=== PATIENT | male | born 1960 | race Caucasian/White ===

== ENCOUNTER 2024-08-11 21:15 | Emergency (ER) | payer OTHER ==
[2024-08-11] MEDS ORDERED: METHYLPREDNISOLONE 125 MG INJ ONE (22:00)
[2024-08-11] MEDS ORDERED: NA CHLORIDE 0.9% 1,000 ML ONE (22:01)
[2024-08-11] MEDS ORDERED: FAMOTIDINE 20 MG/2 ML VIAL IV ONE (22:01)
[2024-08-11] MEDS ORDERED: TETRACAINE HCL 0.5% 4ML OPTH ONE (22:01)
[2024-08-11] MEDS ORDERED: DIPHENHYDRAMINE 50 MG/ML VIAL ONE (22:01)
[2024-08-11 22:18] LABS: Absolute Eosinophils 0.2 K/uL (0-0.5); Absolute Lymphocytes (CBC) 3.3 K/uL (0.7-4.9); Absolute Monocytes 0.7 K/uL (0.1-1.3); Absolute Neutrophil 4.4 K/uL (1.8-8.0); Basophils % 0.4 % (0-1.3); Eosinophils % 1.8 % (0-4.4); Hematocrit 44.6 % (39.6-49.0); Lymphocytes % 37.9 % (15.3-44.8); MCH 29.6 pg (27.0-35.0); MCHC 33.6 g/dL (32.0-36.0); MCV 88.3 fL (80-100); MPV 7.8 fL (7.6-11.3); Monocytes % 8.5 % (3.3-12.3); Neutrophils % 51.4 % (41.7-73.7); Nucleated Red Blood Cells % 0.2 % (0-0); Platelets 323 thou/uL (152-406); RBC Red Blood Cell Count 5.05 M/uL (4.33-5.43); Red Cell Distribution Width 13.6 % (12.1-15.2)
[2024-08-11 22:24] LABS: Anion Gap 8.8 mEq/L (5.0-15.0); Potassium 3.8 mEq/L (3.5-5.1)
[2024-08-11] MEDS ORDERED: FLUORESCEIN SODIUM 1 MG/WRAP ONE ×2 (22:28→22:31)
[2024-08-11] MEDS ORDERED: FENTANYL CITR 100 MCG/2 ML ONE (22:31)
[2024-08-11] MEDS ORDERED: NA CHLORIDE 0.9% 2,000 ML ONE (22:32)
--- NOTE | 2024-08-12 00:45 | EDPHYS ---
Physician Documentation [facility] Name: Tyrone Dietz Age: 64 yrs Sex: Male : 1960 Arrival Date: 08/11/2024 Time: 21:15 Bed 11 Private MD: ED Physician Jamal Black HPI: 08/11 21:45 This 64 yrs old Male presents to ER via Ambulatory with complaints of BL eyes pain cp exposure. 21:45 The patient is experiencing burning, pain, redness, to both eyes, caused by exposure to cp plant sap from plant near home that patient touched and then wiped across eyes. Onset: The symptoms/episode began/occurred today. 21:45 Duration: the symptoms are continuous. Associated signs and symptoms: Pertinent cp positives: nasal congestion, facial swelling, rash. Patient does not utilize any form of vision correction. Severity of symptoms: in the emergency department the symptoms are worse moderately. Historical: - Allergies: 21:49 No Known Allergies; ha1 - PMHx: 21:49 None; ha1 - Immunization history:: Adult Immunizations up to date. - Infectious Disease History:: Denies. - Social history:: Smoking status: Patient denies any tobacco usage or history of. ROS: 21:50 Constitutional: Negative for body aches, chills, fever, poor PO intake, cp 21:50 Eyes: Positive for itching, pain, redness, of the left eye and right eye, burning, cp 21:50 ENT: Positive for nasal congestion, Negative for drainage from ear(s), ear pain, sore throat, difficulty swallowing, difficulty handling secretions, 21:50 Cardiovascular: Negative for chest pain, edema, palpitations, 21:50 Respiratory: Negative for cough, shortness of breath, wheezing, 21:50 Abdomen/GI: Negative for abdominal pain, vomiting, diarrhea, constipation, 21:50 Skin: Positive for erythema, swelling, of the face, 21:50 Neuro: Negative for altered mental status, dizziness, headache, 21:50 All other systems are negative, Exam: 21:55 Constitutional: The patient appears in no acute distress, alert, awake, non-toxic, well cp developed, well nourished, uncomfortable, 21:55 Head/face: Noted is tenderness, mild erythema, mild swelling right periorbital area. cp 21:55 Eyes: Pupils: equal, round, and reactive to light and accomodation, Extraocular movements: intact throughout, Conjunctiva: injected, bilaterally, Lids and lashes: erythema, on the right, 21:55 ENT: External ear(s): are unremarkable, Nose: is normal, Mouth: Lips: moist, Oral mucosa: moist, Posterior pharynx: Airway: no evidence of obstruction, patent, 21:55 Chest/axilla: Inspection: normal, 21:55 Cardiovascular: Rate: normal, 21:55 Respiratory: the patient does not display signs of respiratory distress, Respirations: normal, no use of accessory muscles, no retractions, labored breathing, is not present, Breath sounds: are clear throughout, no decreased breath sounds, no stridor, no wheezing, 21:55 Abdomen/GI: Inspection: abdomen appears normal, Palpation: abdomen is soft and non-tender, in all quadrants, Vital Signs: 21:34 BP 143 / 78; Pulse 98; Resp 18 S; Temp 97.5(T); Pulse Ox 100% on R/A; Weight 88.45 kg; ha1 Height 5 ft. 11 in. ; 23:39 BP 147 / 92; Pulse 72; Resp 18; Pulse Ox 100% on R/A; br2 08/12 01:15 BP 117 / 85; Pulse 77; Resp 18 S; Pulse Ox 99% on R/A; ha1 01 21:34 Body Mass Index 27.20 (88.45 kg, 180.34 cm) ha MDM: 08/11 21:38 Medical Screening Exam initiated cp 22:00 Differential diagnosis: Corneal abrasion of Corneal ulcer of Foreign body in both eyes. cp Acute iritis of Chemical conjunctivitis in both eyes. Allergic conjunctivitis in both eyes. Infectious conjunctivitis in both eyes. 08/12 00:45 Data reviewed: vital signs, nurses notes, lab test result(s), and as a result, I will cp discharge patient. 00:45 I considered the following discharge prescriptions or medication management in the emergency department Medications were administered in the Emergency Department. See OCT. 00:45 Counseling: I had a detailed discussion with the patient and/or guardian regarding the historical points, exam findings, and any diagnostic results supporting the discharge/admit diagnosis, lab results, the need for outpatient follow up, an opthalmologist, to return to the emergency department if symptoms worsen or persist or if there are any questions or concerns that arise at home. Response to treatment: the patient's symptoms have mildly improved after treatment, and as a result, I will discharge patient. 08/11 21:42 Order name: CBC with Diff; Complete Time: 22:44 cp 08/11 21:42 Order name: BMP; Complete Time: 22:44 cp 08/11 21:42 Order name: IV; Complete Time: 21:46 cp 08/11 21:42 Order name: Eye Tray; Complete Time: 22:27 cp 08/11 21:42 Order name: Fluoresene Opth strip; Complete Time: 00:40 cp 08/11 21:42 Order name: Visual Acuity; Complete Time: 00:40 cp Administered Medications: 08/11 22:21 Drug: NS 0.9% IV 500 ml 500 ml IV at 1 bolus once; to be given as a bolus over 30 br2 minutes Volume: 500 ml; Route: IV; Rate: 1 bolus; Site: right antecubital; 23:00 Follow up: IV Status: Completed infusion; IV Intake: 500ml br2 22:21 Drug: MethylPrednisoLONE IVP 125 mg IVP once Route: IVP; Site: right antecubital; br2 23:00 Follow up: Response: No adverse reaction br2 22:21 Drug: Famotidine IVP 20 mg IVP once; dilute with 10 mL 0.9% NaCl; give over 2 minutes br2 Route: IVP; Site: right antecubital; 23:00 Follow up: Response: No adverse reaction br2 22:21 Drug: Tetracaine Ophthalmic Drops 0.5 % 1 drops Ophthalmic once Route: Ophthalmic; br2 Site: both eyes; 22:45 Follow up: Response: No adverse reaction br2 22:22 Drug: diphenhydrAMINE IVP 25 mg IVP once Route: IVP; Site: right antecubital; br2 23:00 Follow up: Response: No adverse reaction br2 22:44 Drug: fentaNYL (PF) IVP 25 mcg IVP once Route: IVP; Site: right antecubital; br2 23:00 Follow up: Response: No adverse reaction; Marked relief of symptoms; Pain is decreased ha1 23:08 Not Given (CHANGE ORDERr): Ringers - lactated ringers [id number] ml IV at calculated br2 rate bolus; eye flush 23:09 Drug: NS 0.9% IV 1000 ml IV at 1000 ml once; EYE IRRIGATION Route: IV; Rate: 1000 ml; br2 Site: Other; 08/12 01:35 Follow up: Response: No adverse reaction; IV Status: Completed infusion; IV Intake: ha1 1000ml 08/11 23:10 Drug: NS 0.9% IV 1000 ml IV at 1 bolus Per protocol; EYE IRRIGATION Route: IV; Rate: 1 br2 bolus; Site: Other; 08/12 01:35 Follow up: Response: No adverse reaction; IV Status: Completed infusion; IV Intake: ha1 1000ml 08/11 23:14 Not Given (CHANGED ORDERr): Ringers - lactated ringers [id number] ml IV at calculated br2 rate bolus; eye flush 08/12 01:20 Drug: Ativan IVP 1 mg IVP once Route: IVP; Site: right antecubital; ha1 01:35 Follow up: Response: No adverse reaction; Marked relief of symptoms ha1 01:22 Drug: Ketorolac IVP 15 mg IVP once Route: IVP; Site: right antecubital; ha1 01:35 Follow up: Response: No adverse reaction; Marked relief of symptoms ha1 01:41 Not Given (NOT IN INVENTORY ): gentamicinointment 0.3 % 0.5 inches Ophthalmic once; ha1 Both Eyes Disposition: 01:52 Co-signature as Attending Physician, Jamal Black MD I reviewed the patient's care rt provided by the Advanced Practice Provider and agree with the diagnosis and treatment plan. 21:38 Chart complete. cp Disposition Summary: 08/12/24 00:45 Discharge Ordered Notes: Location: Home cp Problem: new cp Symptoms: have improved cp Condition: Stable cp Diagnosis - Unspecified acute conjunctivitis, bilateral cp Followup: cp - With: Susu Ewing MD - When: 1 - 2 days - Reason: Recheck today's complaints Discharge Instructions: - Discharge Summary Sheet cp - Chemical Conjunctivitis, Adult cp Forms: - Medication Reconciliation Form cp - Antibiotic Education cp - Prescription Opioid Use cp - Patient Portal Instructions cp - Leadership Thank You Letter cp Prescriptions: - Anaprox DS 550 mg Oral Tablet - take 1 tablet ORAL route every 12 hours As needed; 20 tablet; Refills: 0, cp Product Selection Permitted - Medrol (Nguyễn) 4 mg Oral Tablets, Dose Pack - take 1 tablet ORAL route as directed - follow package instructions; 1 packet; cp Refills: 0, Product Selection Permitted - Gentamicin 0.3 % (3 mg/gram) Ophthalmic ointment - apply 0.5 inch OPHTHALMIC route 2-3 times daily for 7 days apply ointment to cp lower eyelid of each eye as directed; 3.5 gram; Refills: 0, Product Selection Permitted Signatures: Dispatcher [employer] EDKS Kali Garland PA PA cp Genesis Davila, RN RN ha1 Jamal Black MD MD rt Mary Anne Gale RN RN br2 Corrections: (The following items were deleted from the chart) 08/11 21:42 21:42 CBC+H.LAB.BRZ ordered. EDKS EDKS 21:42 21:42 BASIC METABOLIC PANEL+C.LAB.BRZ ordered. EDKS EDKS 08/12 21:36 08/11 21:45 The patient is experiencing burning, pain, redness, to both eyes, caused by cp exposure to plant near home that patient touched and then wiped across eyes, cp
--- NOTE | 2024-08-12 00:45 | ER ---
Nurse's Notes [facility] Name: Tyrone Dietz Age: 64 yrs Sex: Male : 1960 Arrival Date: 08/11/2024 Time: 21:15 Bed 11 Private MD: Diagnosis: Unspecified acute conjunctivitis, bilateral Presentation: 08/11 21:34 Chief complaint: Patient states: I WAS MOVING A PLANT/CACTUS AND ONE OF THE BRANCHES ha1 BROKE AND SPLASH SAP IN MY EYE. I ALREADY IRRIGATED BUT IT IS NOT IMPROVING IT CONDE A LOT. 21:34 Coronavirus screen: Vaccine status: Patient reports being unvaccinated. Ebola Screen: ha1 No symptoms or risks identified at this time. Initial Sepsis Screen: Does the patient meet any 2 criteria? No. Patient's initial sepsis screen is negative. Does the patient have a suspected source of infection? No. Patient's initial sepsis screen is negative. Risk Assessment: Do you want to hurt yourself or someone else? Patient reports no desire to harm self or others. Onset of symptoms was August 11, 2024. 21:34 Method Of Arrival: Ambulatory ha1 21:34 Acuity: SHIRA 3 ha1 Triage Assessment: 21:34 General: Appears uncomfortable, Behavior is cooperative, anxious. Pain: Complains of ha1 pain in right eye and left eye Pain radiates to HEAD Pain currently is 9 out of 10 on a pain scale. Quality of pain is described as burning. EENT: Reports pain in right eye and left eye. Neuro: Level of Consciousness is awake, alert, obeys commands, Oriented to person, place, time, situation. Cardiovascular: Capillary refill < 3 seconds Patient's skin is warm and dry. Respiratory: Airway is patent Respiratory effort is even, unlabored, Respiratory pattern is regular, symmetrical. Historical: - Allergies: 21:49 No Known Allergies; ha1 - PMHx: 21:49 None; ha1 - Immunization history:: Adult Immunizations up to date. - Infectious Disease History:: Denies. - Social history:: Smoking status: Patient denies any tobacco usage or history of. Screenin:52 [facility] ED Fall Risk Assessment (Adult) History of falling in the last 3 months, ha1 including since admission No falls in past 3 months (0 pts) Confusion or Disorientation No (0 pts) Intoxicated or Sedated No (0 pts) Impaired Gait No (0 pts) Mobility Assist Device Used No (0 pt) Altered Elimination No (0 pt) Score/Fall Risk Level 0 - 2 = Low Risk Oriented to surroundings, Maintained a safe environment, Educated pt \\T\\ family on fall prevention, incl call for assistance when getting out of bed, Hourly rounding (assess needs \\T\\ fall precautionary measures) done. Abuse screen: Denies threats or abuse. Denies injuries from another. Nutritional screening: No deficits noted. Tuberculosis screening: No symptoms or risk factors identified. Assessment: 21:35 Reassessment: Patient and/or family updated on plan of care and expected duration. Pain br2 level reassessed. Patient is alert, oriented x 3, equal unlabored respirations, skin warm/dry/pink. General: Appears uncomfortable, Behavior is anxious, restless. Pain: Complains of pain in right eye and left eye Pain does not radiate. Neuro: Bridges Agitation-Sedation Scale (RASS): 0 - Alert and Calm Level of Consciousness is awake, alert, obeys commands, Oriented to person, place, time, situation. EENT: Reports blurred vision in outer aspect of conjuctiva of right eye, iris of right eye, inner aspect of conjuctiva of right eye, outer aspect of conjuctiva of left eye, iris of left eye and inner aspect of conjunctiva of left eye nasal congestion pain photophobia in outer aspect of conjuctiva of right eye, iris of right eye, inner aspect of conjuctiva of right eye, outer aspect of conjuctiva of left eye, iris of left eye and inner aspect of conjunctiva of left eye. 22:22 Reassessment: SPOKE TO POISON CONTROL. ELAINA WITH [facility] .SHE ADVISED br2 IRRIGATION AND COMFORT CARE AND EYE EXAM ONCE PAIN IS BETTER. CASE #[id number]. 23:47 Reassessment: LEFT EYE IRRIGATION COMPLETED. WILL ALLOW RIGHT EYE TO COMPLETE. br2 08/12 00:45 Reassessment: visual accuracy exam unable to complete patient states " I can see but it ha1 hurts too much to keep my eyes open with the light". 01:15 Reassessment: Patient and/or family updated on plan of care and expected duration. Pain ha1 level reassessed. Patient is alert, oriented x 3, equal unlabored respirations, skin warm/dry/pink. Vital Signs: 08/11 21:34 BP 143 / 78; Pulse 98; Resp 18 S; Temp 97.5(T); Pulse Ox 100% on R/A; Weight 88.45 kg; ha1 Height 5 ft. 11 in. ; 23:39 BP 147 / 92; Pulse 72; Resp 18; Pulse Ox 100% on R/A; br2 08/12 01:15 BP 117 / 85; Pulse 77; Resp 18 S; Pulse Ox 99% on R/A; ha1 08/11 21:34 Body Mass Index 27.20 (88.45 kg, 180.34 cm) ha1 ED Course: 08/11 21:31 Patient arrived in ED. ra3 21:34 Patient has correct armband on for positive identification. Bed in low position. Call ha1 light in reach. Side rails up X 1. Adult w/ patient. 21:34 Door closed. Noise minimized. Lights dimmed. Warm blanket given. Pillow given. ha1 21:34 Arm band placed on right wrist. ha1 21:38 Kali Garland PA is PHCP. cp 21:38 Jamal Black MD is Attending Physician. cp 21:46 Inserted saline lock: 20 gauge in right antecubital area, using aseptic technique. af3 Blood collected. Flushed with 10 mL NS. 21:49 Triage completed. ha1 21:58 Mary Anne Gale, FRANCESCO is Primary Nurse. br2 22:45 Eye irrigation of both eyes w/ Nick lens IV tubing. br2 08/12 00:44 Susu Ewing MD is Referral Physician. cp 01:35 No provider procedures requiring assistance completed. ha1 01:35 IV discontinued, intact, bleeding controlled, No redness/swelling at site. Pressure ha1 dressing applied. 01:35 Provided Education on: following up with ophthalmology, and medication administration . ha1 Administered Medications: 08/11 22:21 Drug: NS 0.9% IV 500 ml 500 ml IV at 1 bolus once; to be given as a bolus over 30 br2 minutes Volume: 500 ml; Route: IV; Rate: 1 bolus; Site: right antecubital; 23:00 Follow up: IV Status: Completed infusion; IV Intake: 500ml br2 22:21 Drug: MethylPrednisoLONE IVP 125 mg IVP once Route: IVP; Site: right antecubital; br2 23:00 Follow up: Response: No adverse reaction br2 22:21 Drug: Famotidine IVP 20 mg IVP once; dilute with 10 mL 0.9% NaCl; give over 2 minutes br2 Route: IVP; Site: right antecubital; 23:00 Follow up: Response: No adverse reaction br2 22:21 Drug: Tetracaine Ophthalmic Drops 0.5 % 1 drops Ophthalmic once Route: Ophthalmic; br2 Site: both eyes; 22:45 Follow up: Response: No adverse reaction br2 22:22 Drug: diphenhydrAMINE IVP 25 mg IVP once Route: IVP; Site: right antecubital; br2 23:00 Follow up: Response: No adverse reaction br2 22:44 Drug: fentaNYL (PF) IVP 25 mcg IVP once Route: IVP; Site: right antecubital; br2 23:00 Follow up: Response: No adverse reaction; Marked relief of symptoms; Pain is decreased ha1 23:08 Not Given (CHANGE ORDERr): Ringers - lactated ringers [id number] ml IV at calculated br2 rate bolus; eye flush 23:09 Drug: NS 0.9% IV 1000 ml IV at 1000 ml once; EYE IRRIGATION Route: IV; Rate: 1000 ml; br2 Site: Other; 08/12 01:35 Follow up: Response: No adverse reaction; IV Status: Completed infusion; IV Intake: ha1 1000ml 08/11 23:10 Drug: NS 0.9% IV 1000 ml IV at 1 bolus Per protocol; EYE IRRIGATION Route: IV; Rate: 1 br2 bolus; Site: Other; 08/12 01:35 Follow up: Response: No adverse reaction; IV Status: Completed infusion; IV Intake: ha1 1000ml 08/11 23:14 Not Given (CHANGED ORDERr): Ringers - lactated ringers [id number] ml IV at calculated br2 rate bolus; eye flush 08/12 01:20 Drug: Ativan IVP 1 mg IVP once Route: IVP; Site: right antecubital; ha1 01:35 Follow up: Response: No adverse reaction; Marked relief of symptoms ha1 01:22 Drug: Ketorolac IVP 15 mg IVP once Route: IVP; Site: right antecubital; ha1 01:35 Follow up: Response: No adverse reaction; Marked relief of symptoms ha1 01:41 Not Given (NOT IN INVENTORY ): gentamicinointment 0.3 % 0.5 inches Ophthalmic once; ha1 Both Eyes Medication: 01:35 VIS not applicable for this client. ha1 Intake: 08/11 23:00 IV: 500ml; Total: 500ml. br2 08/12 01:35 IV: 1000ml; Total: 1500ml. ha1 01:35 IV: 1000ml; Total: 2500ml. ha1 Outcome: 00:45 Discharge ordered by . karla 01:35 Patient left the ED. ha1 01:35 Discharged to home via wheelchair, with family, ha1 01:35 Condition: stable 01:35 Discharge instructions given to patient, family, Instructed on discharge instructions, follow up and referral plans. medication usage, Demonstrated understanding of instructions, follow-up care, medications, Prescriptions given X 3, Signatures: Kali Garland PA PA cp Ayala, Heidy RN RN ha1 Dina Nuno ra3 Mary Anne Gale RN RN br2 Rand Arambula af3 Corrections: (The following items were deleted from the chart) 08/11 22:24 22:22 Reassessment: SPOKE TO POISON CONTROL...THEY ADVISED IRRIGATION AND COMFORT CARE br2 AND EYE EXAM ONCE PAIN IS BETTER. br2 08/12 01:43 01:42 Patient left the ED. ha1 ha1
[2024-08-12] MEDS ORDERED: LORazepam 2 MG/ML VIAL ONE (01:14)
[2024-08-12] MEDS ORDERED: KETOROLAC 30 MG/ML INJ ONE (01:15)
[2024-08-12 01:47] VITALS: TEMP 97.5; O2SAT 100
[2024-08-12 01:48] VITALS: BP 147/92
== END 2024-08-12 01:42 | disposition home or self-care (01) ==
LOC: ER 21:15
DX: H10.33 Unspecified acute conjunctivitis, bilateral (principal)
CPT/HCPCS: 96361; 85025; 80048; 36415; 96375; 96374; 99284; J1200; J3010; J2919; J7030 ×2